=== PATIENT | male | born 1960 | race Caucasian/White ===

== ENCOUNTER 2023-06-20 07:28 | Emergency (ER) | payer MEDICARE, SELFPAY ==
[2023-06-20 07:37] VITALS: BP 123/96; PULSE 95; RESP 18; TEMP 36.7; O2SAT 97; BMI 26.6
--- NOTE | 2023-06-20 07:54 | W.ED.EXTPRO ---
HPI - Extremity Problem General: Chief complaint: Extremity Injury, Upper Stated complaint: Right shoulder injury Time Seen by Provider: 06/20/23 07:30 History of Present Illness: Patient presents to the ER with complaints of right shoulder pain. Patient states yesterday he [place] the [place] to [place] a [place] tree and fell and landed on his right shoulder. Since then he has been having severe pain and cannot move it. Patient states he also hit his face on the ground. Patient did not lose consciousness. Moving his arm at all increases the pain. Pain is localized to the shoulder region. Review of Systems General: Reports: 10 or more systems reviewed and unremarkable except in HPI and below Physical Exam Const: COMMON NORMALS: no acute distress, average body habitus, patient oriented x3, no limitations, healthy appearing, alert and well nourished HENMT: COMMON NORMALS: normocephalic, atraumatic, hearing grossly normal bilaterally, external ears normal, Normal external nose present, moist oral mucous membranes and oropharynx normal HEAD & SCALP: normocephalic and atraumatic NOSE: Normal external nose present EXTERNAL EAR: Yes external ears normal Eye: COMMON NORMALS: Equal, round and reactive pupils present, EOMs intact bilaterally, conjunctivae normal and no scleral icterus CONJUNCTIVA: Yes conjunctivae normal PUPIL: Yes Equal, round and reactive pupils present Neck/C-Spine: COMMON NORMALS: full ROM, no lymphadenopathy, supple, no meningeal signs, no JVD and Thyroid normal THYROID: Thyroid normal Chest: COMMONS NORMALS: normal inspection of the chest and normal palpation of entire chest wall Resp: COMMON NORMALS: normal respiratory effort, No retractions, No use of accessory muscles and clear to auscultation bilaterally AUSCULTATION: clear to auscultation bilaterally Cardio: COMMON NORMALS: no JVD, regular rate, regular rhythm, S1 normal heart sound present, S2 normal heart sound present, No gallops present (Cardio), No clicks present (Cardio), No murmurs present (Cardio) and No rub (Cardio) RATE: regular rate RHYTHM: regular rhythm HEART SOUNDS: S1 normal heart sound present and S2 normal heart sound present GI: COMMON NORMALS: Normal to inspection, nondistended, normoactive bowel sounds present, Soft to palpation, non-tender, No hepatosplenomegaly present and no masses PALPATION: Yes Soft to palpation and Yes No hepatosplenomegaly present Extremity: NARRATIVE EXTREMITY EXAM: Extreme tenderness with palpation over right shoulder region. Restricted range of motion secondary to pain. Neuro: COMMON NORMALS: patient oriented x3 SENSORIUM/ORIENTATION: Yes alert MENINGEAL SIGNS: Yes no meningeal signs Course Vital Signs: Vital signs: Vital Signs Temperature 98.1 F 06/20/23 07:37 Pulse Rate 78 06/20/23 08:16 Respiratory Rate 16 06/20/23 08:16 Blood Pressure 132/84 06/20/23 08:16 Pulse Oximetry 95 06/20/23 08:16 Oxygen Delivery Me thod Room Air 06/20/23 07:37 MDM - Extremity (Nontraumatic) Medical Decision Making Patient is x-ray done of the shoulder showed no acute findings. Patient was given 4 mg morphine and 4 mg Zofran IM and is able to move the shoulder significantly better. Patient will be discharged home on hydrocodone and a sling and should follow-up with his PCP within the next 7 days. Differential Diagnosis Unlikely herpes zoster, gout, cellulitis, superficial thrombophlebitis, deep venous thrombosis of upper extremity, lower extremity edema or deep vein thrombosis of lower extremity Medical Records I reviewed the patient's medical records. Lab Data I reviewed the patient's lab results. Radiology Impressions Shoulder X-Ray 06/20/23 08:44 IMPRESSION: No acute findings. All radiology interpretation(s) finalized by discharge Discharge Plan Discharge Patient Disposition: Home Clinical Impression: Acute pain of right shoulder, Fall Condition: Stable Discharge Orders: Discharge ED (Routine); Ordered 06/20/23 Ordered By: Bahman Negrete Referrals: Edna Whiteside DO [Primary Care Provider] - Patient Instructions: Opioid Safety, Pain Management, Shoulder Pain (ED) Activity Restrictions/Additional Instructions: Wear sling consistently for the next 3 days and then wear it as needed for the next week. Take your pain medicine as directed. Follow-up with your family practice physician within the next 7 days for further evaluation and treatment as needed. Coding Level of Care Code ED Product Marketing Specialist for Meg Yañez
[2023-06-20] MEDS: ondansetron 2 mg/ML SDV 2 mL 4 MG IM (08:12)
[2023-06-20] MEDS: morphine 4 mg/mL SDV 1 mL IM (08:13)
[2023-06-20 08:16] VITALS: BP 132/84; PULSE 78; RESP 16; O2SAT 95
--- NOTE | 2023-06-20 08:44 | XRR_ITS ---
PROCEDURE INFORMATION: Exam: XR Right Shoulder Exam date and time: 06/20/2023 8:49 AM Age: 62 years old Clinical indication: Injury or trauma; Fall; Blunt trauma (contusions or hematomas); Shoulder; Right; Additional info: Fall shoulder pain TECHNIQUE: Imaging protocol: Radiologic exam of the right shoulder. Views: 2 or more views. Total images: 1 COMPARISON: No relevant prior studies available. FINDINGS: Bones/joints: Normal. Soft tissues: Normal. XR/XR shoulder RT min 2V* [id number] IMPRESSION: No acute findings.
--- NOTE | 2023-06-20 09:01 | PC.NURSE ---
RN ASSUMED CARE AT THIS TIME
[2023-06-20 09:38] VITALS: BP 116/84; PULSE 78; RESP 16; O2SAT 95
== END 2023-06-20 09:39 | disposition home or self-care (01) ==
PROVIDERS: Emergency Provider Emergency Medicine; PCP Family Medicine
DX: M25.511 Pain in right shoulder (principal); W18.39XA Other fall on same level, initial encounter
CPT/HCPCS: 73030; 96372; 99284; J2270; J2405